=== PATIENT | male | born 1940 | race Caucasian/White ===

== ENCOUNTER 2019-06-25 07:06 | Outpatient (CLI) | payer MEDICARE, MEDICAID, SELFPAY ==
[2019-06-25 07:39] VITALS: BMI 31.8
--- NOTE | 2019-06-25 07:42 | ECG_ITS ---
NAME OF STUDY: LEXISCAN SESTAMIBI STRESS TEST INDICATION: Chest Pain, LEXISCAN STRESS TEST ORDERING PHYSICIAN: Nick CLINICAL INFORMATION: Chest pain INTERPRETATION: 1. The patient was brought to the laboratory where Lexiscan was infused over 20 seconds. The resting blood pressure was 128/84. Maximum blood pressure was 152/86. The resting heart rate was 81 beats per minute. The maximum heart rate is 108 beats per minute. 2. The baseline electrocardiogram reveals sinus rhythm with a right ventricular conduction delay and first-degree AV block, poor R wave progression 3. With Lexiscan infusion, there were no ST segment changes to suggest ischemia. 4. The patient experienced no symptoms or arrhythmias during the examination. CONCLUSION: 1. Unremarkable Lexiscan infusion. 2. Nuclear imaging to follow. Electronically Signed On 06-25-2019 16:24:38 TELETRAY OPERATOR by Chad Bañuelos M.D. [id number]
--- NOTE | 2019-06-25 07:43 | NMCV_ITS ---
Gurwinder Lanza Age: 79 Gender: M : 1940 Exam Date: 06/25/2019 08:06 Ordering Phys: Shemar Romero Technologist: MARY JANE Red Exam Location: [facility] Indications: Chest Pain STRESS TEST Please see separate stress test report in [facility] for full findings IMAGE PROTOCOL Rest/Stress 1 Lexiscan Day Radiopharmaceutical Dose (mCi) Administration Site Administered by Rest: Tc-99m 10.2 IV AMRY JANE Red Sestamibi Stress:Tc-99m 30.9 IV MARY JANE Red Sestamibi Rest: 25-Jun-2019 60 Discovery 630 Stress: 25-Jun-2019 60 Discovery 630 0.4mg Lexiscan. Images obtained in supine and prone position. SPECT RESULTS Technical Quality: Good Raw Data Analysis: Normal, Subdiaphragmatic activity Image Corrections: Attenuation correction applied to both rest and stress due to breathing Summed Stress Score: 0 Summed Rest Score: 0 Summed Difference Score: 0 PERFUSION FINDINGS SPECT images demonstrate homogeneous tracer distribution throughout the myocardium. FUNCTIONAL RESULTS (calculated via Gated SPECT) Stress Image LV EF (%): 71 Stress EDV (mL):82 TID: 1.14 Stress ESV (mL):24 FUNCTIONAL FINDINGS: The left ventricle is normal in size. Transient Ischemia Dilatation of 1.1. There is normal left ventricular systolic function. The left ventricular ejection fraction is normal with a value of 71%. There is normal left ventricular wall thickening. Normal end-diastolic and end-systolic volumes. IMPRESSIONS 1. Myocardial perfusion imaging is normal. 2. Overall left ventricular systolic function is normal without regional wall motion abnormalities. 3. The left ventricular ejection fraction is normal with a value of 71%. 4. This study suggests a low likelihood of angiographically significant coronary artery disease. Ghada Vazquez MD (Electronically Signed) Final Date: 26 June 2019 13:31 S
[2019-06-25] MEDS: regadenoson 0.4 Mg/5 ml Syringe IVP (08:58)
[2019-06-25] MEDS: aminophylline 25 mg/mL SDV 10 mL IVP (09:03)
[2019-06-25 09:08] VITALS: BP 142/85; PULSE 78
== END 2019-06-25 07:07 | disposition home or self-care (01) ==
PROVIDERS: Family Provider Family Medicine; PCP Family Medicine; Visit Provider Family Medicine
DX: R07.9 Chest pain, unspecified (principal); I25.118 Atherosclerotic heart disease of native coronary artery with other forms of angina pectoris; R06.09 Other forms of dyspnea
CPT/HCPCS: 78452; 93017; 96374; A9500; J0280; J2785

== ENCOUNTER → 2021-03-10 14:45 | Outpatient (BNVA) | payer MEDICARE, MEDICAID, SELFPAY | PROVIDERS: Family Provider Family Medicine; PCP Family Medicine; Visit Provider Internal Medicine Cardiovascular Disease | DX: R06.00 Dyspnea, unspecified (principal); R07.9 Chest pain, unspecified; I25.10 Atherosclerotic heart disease of native coronary artery without angina pectoris; I10 Essential (primary) hypertension; E78.5 Hyperlipidemia, unspecified; J44.9 Chronic obstructive pulmonary disease, unspecified | CPT/HCPCS: 80048; 83735; 83880 ==

== ENCOUNTER → 2022-02-21 10:43 | Outpatient (BNVA) | payer MEDICARE, MEDICAID, SELFPAY | PROVIDERS: Family Provider Family Medicine; PCP Family Medicine; Visit Provider Internal Medicine Cardiovascular Disease | DX: R06.00 Dyspnea, unspecified (principal); R07.9 Chest pain, unspecified; I25.10 Atherosclerotic heart disease of native coronary artery without angina pectoris; I10 Essential (primary) hypertension; E78.5 Hyperlipidemia, unspecified; J44.9 Chronic obstructive pulmonary disease, unspecified; Z87.891 Personal history of nicotine dependence | CPT/HCPCS: 99205; 99214 ==

== ENCOUNTER → 2022-02-28 09:18 | Outpatient (BNVA) | payer MEDICARE, MEDICAID, SELFPAY | PROVIDERS: Family Provider Family Medicine; PCP Family Medicine; Visit Provider Internal Medicine Hematology & Oncology | DX: I10 Essential (primary) hypertension (principal); I25.10 Atherosclerotic heart disease of native coronary artery without angina pectoris; R06.00 Dyspnea, unspecified; R07.9 Chest pain, unspecified | CPT/HCPCS: 80048; 85025; 85610 ==

== ENCOUNTER 2022-03-06 13:40 | Observation (INO) | payer MEDICARE, MEDICAID, SELFPAY ==
[2022-03-06] VITALS (43 sets, daily range): BP systolic 100–168; BP diastolic 57–137; PULSE 58–86; RESP 14–24; TEMP 36.8–37.1; O2SAT 73–98; BMI 32.3
--- NOTE | 2022-03-06 07:30 | XACV_ITS ---
Exam Room: [facility] Ht: 183 cm Wt: 108 kg BSA: 2.37 m2 Gender: Male : 1940 Any Known Allergies: Other Exam Priority: Routine Procedure(s): Procedure Description: Diagnostic procedure Procedure Description: PCI procedure Procedure Description: Left Heart Catheterization Procedure Description: Drug Eluting Coronary Stent Procedure Description: PTCA Procedure Description: Miscellaneous Procedure Description: ACT Procedure Description: Coronary Angiography Diagnostic Cath Status: Elective Diagnostic Findings * Coronary angiography shows right dominance. * Left Main has no disease. * Left Anterior Descending has proximal LAD stent. Mild 40% in stent restenosis. Mild segment of diagonal branch with 70% stenosis. * Mid Circumflex: obstructive hazy 95% stenosis, OREN: 3 flow. * Right Coronary Artery has minor luminal irregularities. PCI Status: Elective PCI Indication: Other Interventional Findings * Procedure detail: We engaged left main artery with XB 3.5 guide catheter. IV heparin was administered to maintain ACT above 250 S. 0.014 run-through guidewire was used to cross the mid left circumflex artery stenosis and was put in distal vessel. We predilated the stenosis with 2.5 x 12 mm noncompliant balloon. This was followed by placement of 3.0 x 15 mm resolute Ambreen drug-eluting stent. We postdilated the proximal part portion of the stent with 3.5 x 6 mm NC balloon. At this time final angiogram was performed that showed excellent stent expansion, no residual stenosis and OREN-3 flow. Patient left the Field Coordinator in a stable condition. * Mid Circumflex: 70% stenosis treated with a AB TREK 2.50X12 RX BALLOON, SHAHEEN R AMBREEN 3.0X15 SABINE, and MDT GUERO EUPHORA RX [id number] BALLOON. 0% residual stenosis, OREN: 3 flow. Conclusions 1. Mid Circumflex: obstructive hazy 95% stenosis. 2. Mild 40% in stent restenosis of proximal LAD stent. Mild segment of diagonal branch with 70% stenosis. 3. Case was discussed and images were reviewed with Dr. Ingram. Decision was made to proceed with medical management of diagonal lesion and PCI of mid circumflex lesion. 4. Successful revascularization of mid left circumflex artery stenosis with SABINE x1. 5. Mid Circumflex was treated with a Balloon, Drug Eluting Stent, and Balloon. Recommendations * Continue Plavix 75mg p.o. daily for at least one year. * Statin and aspirin 81mg. * Outpatient cardiology follow-up in 4 weeks. Interventional RX Recommendation: PCI w/o planned CABG Diagnostic RX Recommendation: PCI w/o planned CABG Anticoagulation: Heparin LV EDP: 18 mmHg Left Ventriculography Findings: * Left Ventriculogram not performed to minimize contrast use. Pressures Phase:Rest AO : 113 / 70 ( 90 ) @ 10:05:00 AM 121 / 71 ( 92 ) @ 10:18:00 AM 114 / 68 ( 89 ) @ 10:18:00 AM LV : 150 / -7 / 18 @ 10:18:00 AM 151 / -7 / 18 @ 10:18:00 AM Valves Phase:DefaultPhase AV : 9.0 @ 10:07:27 AM AV Mean Gradient: 14.0 @ 10:07:27 AM Clinical Evaluation EBL: 5mL-10mL Procedural Details Procedure Consent Obtained. Admit Source: Out Patient. Pre-Procedure Time Out. Identified patient by full name and date of as verbalized by the patient/guarantor. Does the consent match the physician's order: Yes. Accurate & Complete Informed Consent: Yes. Inpatient/Outpatient History & Physical on Chart: Yes. If H&P is completed, is and addenduem needed: No; If yes, is the addendum complete: N/A. Visualize and Verify Site with Patient/Guarantor: N/A. Relevant Radiology Images available: N/A. The risks, benefits, and alternatives of sedation and/or procedure were discussed by physician. The patient agrees to continue. Procedure started. [facility] Clinical Fraility Score: 3: Managing Well. Field Coordinator Indications: Worsening Angina. Chest Pain Symptom Assessment: Typical Angina Symptoms. Correct patient, site and procedure confirmed by cath team. Current diagnosis: Chest Pain, Shortness of breath. PERRLA. Strong, equal hand head of visual merchandising bilaterally. Lungs clear x 5 lobes. IV Site on Arrival: 20 gauge in the right anticubital. IV Fluids: 0.9% NaCl at KVO. 0 mL infused prior to solar lab technician. Pre Procedural Pulses: bilateral radial was 3+. Pre Procedural Pulses: bilateral posterior tibial was 2+. Pre Procedural Pulses: bilateral dorsalis pedis was 2+. Oxygen started at 2liters/min via nasal canula. right radial was prepped with chloroprep then draped in the usual sterile fashion. right groin was prepped with chloroprep then draped in the usual sterile fashion. Physician notified. Baseline sample Acquired. HR: 75 BPM. Physician arrived. Physician scrubbed in. Immediate Pre-Procedure Time Out. Correct Patient: Yes; Correct Procedure: Yes; Correct Site: Yes; Correct Patient Position: Yes; Correct Supplies: Yes; Dried Flammable Prep: Yes; Blood Products Available: No;. Lidocaine 1% infiltrated to the right radial. Arterial access obtained. A 5 kittitian TIG catheter in over wire. Catheter removed over the exchange wire. A 5 kittitian JL4 catheter in over wire. Multiple views taken of left coronary artery. Catheter removed over the exchange wire. A 5 kittitian JR4 catheter in over wire. EDP Sample taken: LV 150/-8,18; HR: 76 BPM; SpO2: 93%. Pullback taken: LV 151/-8,18; AO 121/71(92); Mean: 14mmHg, Peak to Peak: 9mmHg, SEP: 9sec/min; HR: 95 BPM; SpO2: 93%. Catheter redirected to the RCA. Catheter removed over the exchange wire. A 5 kittitian 3DRC catheter in over wire. Multiple views taken of right coronary artery. Catheter and wire out. Side port of sheath attached to Normal Saline flush at KVO to maintain patency. Dr. Ingram arrived to review of cine films. Dr. Ingram scrubbed in to perform intervention. 6 kittitian XB 3.5 guide catheter was inserted over the wire. Runthrough guidewire was advanced through the guide catheter to lesion in the mid Circ. Guidewire advanced across lesion. Balloon inserted to lesion in the mid Circ. Inflation number: 1 The AB TREK 2.50X12 RX BALLOON was reinflated across the Mid CX, to 12 [place] for 0:21 seconds. Balloon out. Stent inserted to lesion in the mid Circ. Inflation Number : 2 A SHAHEEN Rao AMBREEN 3.0X15 SABINE -Lot Number#[id number] was prepped and advanced across the Mid CX. The stent was deployed at 12 [place] for 0:21 seconds. EXP 12-22-2023. Stent balloon out over wire. Balloon inserted to lesion in the mid Circ. Inflation number : 3 A MDHarris JACK EUPHORA RX [id number] BALLOON was prepped and advanced across the Mid CX , then inflated to 12 [place]IGH for 0:21 seconds. Balloon out. Angiography performed, checking results. Wire out. Angiography performed, checking results. ACT drawn. Results 259 seconds. Therapeutic limits - pre-heparin administration 90-150 seconds and monitoring heparin during a vascular procedure >250 seconds. Guide catheter and wire out. A TR Band was successful obtaining hemostatsis at the Right Radial artery insertion site. Post Procedure: Pulses reassessed and unchanged. PERRLA. Strong, equal hand head of visual merchandising bilaterally. Medication's Wasted: Nitro = 49.55 mg. Medication's Wasted: Heparin = 3000 unit. Total IV fluids: 96 mL. Post-op diagnosis: Severe mid circumflex stenosis, status post PCI with one stent. Complications: None. Estimated blood loss: 5mL-10mL. Responsiveness - Normal response to verbal stimuli; alert and oriented, PERRLA. Airway - Unaffected, no intervention required; spontaneous ventilation. Circulation: W/N/L, pulses unchanged. Nausea/Vomiting: N/A. Procedure completed. Patient transferred by wheelchair to 1st floor. Vital chart was stopped. Access Site Site: Right Radial artery Sheath Size: 6 Fr Hemostasis Method: TR Band Hemostasis Success: Successful Procedure Medications Start: 8:48 AM Stop: 8:48 AM Medication: Versed Amount: 1 mg Route: I.V. Start: 8:48 AM Stop: 8:48 AM Medication: Fentanyl Amount: 50 mcg Route: I.V. Start: 9:00 AM Stop: 9:00 AM Medication: Nitrogylcerin Amount: 50 mcg Route: S.Q. Start: 9:01 AM Stop: 9:01 AM Medication: Nitrogylcerin Amount: 200 mcg Route: I.A. Start: 9:11 AM Stop: 9:11 AM Medication: Heparin Amount: 5000 units Route: I.V. Start: 9:13 AM Stop: 9:13 AM Medication: Versed Amount: 1 mg Route: I.V. Start: 9:33 AM Stop: 9:33 AM Medication: Fentanyl Amount: 25 mcg Route: I.V. Start: 9:38 AM Stop: 9:38 AM Medication: Heparin Amount: 5000 units Route: I.V. Start: 9:38 AM Stop: 9:38 AM Medication: Versed Amount: 1 mg Route: I.V. Start: 9:52 AM Stop: 9:52 AM Medication: Heparin Amount: 2000 units Route: I.V. Start: 9:57 AM Stop: 9:57 AM Medication: Versed Amount: 1 mg Route: I.V. Start: 9:57 AM Stop: 9:57 AM Medication: Nitrogylcerin Amount: 200 mcg Route: I.A. Start: 9:57 AM Stop: 9:57 AM Medication: Fentanyl Amount: 25 mcg Route: I.V. Start: 10:02 AM Stop: 10:02 AM Medication: Heparin Amount: 1000 units Route: I.V. Start: 10:04 AM Stop: 10:04 AM Medication: Plavix Amount: 600 mg Route: P.O. I, the attending physician, have reviewed and verified all procedure medications. Yes, all medications given per verbal order History/Risk Factors Hypertension: Yes Dyslipidemia: Yes Peripheral Arterial Disease (PAD): No Myocardial Infarction (AK): No Obesity: No Renal Disease: No Tobacco Use: Former Prior Interventions PCI: Yes CABG: No Valve Surgery: No Report Signatures Interventional Workflow Finalized by Steve Ingram MD on 03/12/2022 12:13 AM Diagnostic Workflow Finalized by Ghada Vazquez MD on 03/09/2022 01:03 PM
[2022-03-06] MEDS: diphenhydrAMINE 50 mg Capsule PO (07:40)
--- NOTE | 2022-03-06 08:41 | W.PM.OPSUD ---
Surgery/Procedure H&P Update DATE OF PROCEDURE: March 06, 2022 DATE H&P PERFORMED: 02/21/22 H&P UPDATE INFORMATION: I have reviewed H&P completed within last 30 days, I have examined patient prior to procedure and No changes to prior documentation PREOP DIAGNOSIS: Exertional chest tightness and SOB PRIMARY INDICATION FOR PROCEDURE: Exertional chest tightness and SOB inspite of normal stress test PLANNED PROCEDURE: Operation Date: 03/06/22 08:30 Proposed Procedures p [facility] w/wo 07996,R07.9 R06.00,I25.10(Left) - Ghada Vazquez MD PATIENT REASSESSED PRIOR TO SEDATION, WITH NO CHANGE NOTED: Yes PHYSICAL EXAM: alert, oriented x 3, clear to auscultation bilaterally and regular rate & rhythm AIRWAY EVAL/ANESTHESIA PLAN: normal airway, ASA III, Monitored Anesthesia, Local Anesthesia, Risks, benefits & alternatives of sedation and/or procedure discussed and Patient agrees to continue as planned
[2022-03-06] MEDS: sodium chloride 0.9% 1,000 ML 100 ML IV (10:56)
--- NOTE | 2022-03-06 11:05 | PC.NURSE ---
Patient arrived on the floor via wheelchair at 1030 am with right radial TR band. Puncture site is clean and no hematoma present. Skin around band is warm and dry. Patient instructed not to put any weight on right wrist. Patient verbalized understanding.
[2022-03-06] MEDS: TRAMadol 50 mg Tablet PO (14:00)
--- NOTE | 2022-03-06 16:19 | PC.NURSE ---
tr band slowly deflated and finally removed at 1610.site dressed with 2x2 gauze and secured with biocclusive drsg.right hand remains warm to touch and with brisk capillary refill.no hematoma noted.palpable radial pulse noted.pt instructed in activity restrictions s/p tr band removal...and instructed to notify staff for any bleeding,bruising ,pain,or for any concerns at all.pt verb understanding of instructions.
--- NOTE | 2022-03-06 17:06 | PC.NURSE ---
transferred to [id number] via wheel chair at this time
[2022-03-06] MEDS: amlodipine 10 mg Tablet PO (20:56)
[2022-03-07] VITALS: BP 125/60; PULSE 65; RESP 18; TEMP 36.6; O2SAT 96
[2022-03-07] MEDS: acetaminophen 325 mg Tablet 650 MG PO ×2 (01:52→07:53)
[2022-03-07] MEDS: temazepam 15 mg Capsule PO (01:58)
[2022-03-07 03:40] LABS: Blood Urea Nitrogen 14 mg/dL (8-23); Calcium 8.8 mg/dL (8.5-10.5); Carbon Dioxide 26 mmol/L (22-29); Chloride 105 mmol/L (98-107); Chol HDL Ratio 2.98 mg/dL (1.0-5.00); Cholesterol 125 mg/dL (0-200); Glucose 110 mg/dL (65-115); HDL Cholesterol 42 mg/dL (60-100); LDL Cholesterol Calculated 57 mg/dL (50-129); LDL HDL Ratio 1.36 RATIO (0.00-3.22); Magnesium 2.2 mg/dL (1.7-2.3); NT Pro B Type Natriuretic Pept 59 pg/mL (0-450); Osmolality Calculated 289 mOsm/kg (285-295); Sodium 139 mmol/L (136-145); Triglycerides 130 mg/dL (0-150)
[2022-03-07 04:00] VITALS: BP 125/60; PULSE 72; RESP 20; TEMP 36.3; O2SAT 94
[2022-03-07] MEDS: TRAMadol 50 mg Tablet PO (05:38)
[2022-03-07 05:57] VITALS: PULSE 73
[2022-03-07 07:33] VITALS: BP 127/89; PULSE 83; RESP 18; TEMP 36.7; O2SAT 93
[2022-03-07] MEDS: doxazosin 4 mg Tablet PO (08:15)
[2022-03-07] MEDS: clopidogrel 75 mg Tablet PO (08:16)
[2022-03-07] MEDS: aspirin 81 mg EC Tablet PO (08:16)
[2022-03-07] MEDS: latanoprost 0.005% Op Soln 2.5 mL Btl 1 DROP OPHTHALMIC (08:17)
--- NOTE | 2022-03-07 10:23 | PM.DCS ---
Discharge Providers Date of Admission: 03/06/22 13:40 Date of Discharge: March 07, 2022 Attending Provider at Admission: Ghada Vazquez MD Attending Provider at Discharge: Ghada Vazquez MD Primary Care Provider: Shemar Romero Reason for Visit Reason for Visit: R07.9 Brief History: Exertional chest pain and SOB Hospital Course Hospital Course 81 yo man with PMHx of HTN, HLD, CAD s/p LAD stent in 2005, former smoker and COPD. He complains of chest tightness, with SOB and dizziness on and off mostly at rest. These episodes happen with physical stress, anxiety. EKG (02/08/21): sinus rhythm, normal axis and non specific ST depression. He did not tolerate imdur due to headache. He lost his 2 brothers recently and has been under significant stress.? He continues to have exertional chest tightness and SOB. Intermittent leg swelling. His SOB is getting worse lately. He underwent LHC and underwent SABINE placement to severe mid LCx lesion and medical treatment of diagonal branch was opted for. He did well post procedure and was discharged home on stable condition. Physical Exam Const: COMMON NORMALS: no acute distress, patient oriented x3 and alert GENERAL APPEARANCE: cooperative, comfortable, well kempt and well hydrated HENMT: COMMON NORMALS: hearing grossly normal bilaterally, external ears normal and moist oral mucous membranes FACE & SINUS: normal facial exam EXTERNAL EAR: Yes external ears normal Eye: COMMON NORMALS: EOMs intact bilaterally and no scleral icterus GENERAL EYE: appearance normal, both eyes and all related structures ALIGNMENT: Yes alignment normal Neck/C-Spine: COMMON NORMALS: no lymphadenopathy, supple and no JVD GENERAL: Yes normal visual inspection CAROTIDS: Yes normal carotid upstroke Lymph: LYMPHATIC: no lymphadenopathy noted Chest: COMMONS NORMALS: normal inspection of the chest and normal palpation of entire chest wall CHEST: Yes Symmetrical chest wall rise and No tenderness Resp: COMMON NORMALS: clear to auscultation bilaterally AUSCULTATION: clear to auscultation bilaterally, no crackles, no rales, no rhonchi and no wheezes Cardio: COMMON NORMALS: no JVD, regular rate, regular rhythm, S1 normal heart sound present, S2 normal heart sound present and Peripheral pulses 2+ throughout PALPATION: normal PMI RATE: regular rate RHYTHM: regular rhythm HEART SOUNDS: S1 normal heart sound present, S2 normal heart sound present and no murmurs BRUITS: no carotid bruits PERIPHERAL PULSES: Peripheral pulses 2+ throughout, radial pulses present, posterior tibial pulses present and dorsalis pedis present GI: COMMON NORMALS: Soft to palpation AUSCULTATION: Yes normoactive bowel sounds PALPATION: Yes Soft to palpation, No Tenderness to palpation present (GI), No Guarding due to palpation present (GI) and No Rigid due to palpation Extremity: GENERAL: No clubbing, No cyanosis, No edema, No pallor and Yes other findings (right wrist 2+ radial, no hematoma) Neuro: COMMON NORMALS: patient oriented x3, CN's II-XII intact bilaterally and no focal motor deficits SENSORIUM/ORIENTATION: Yes alert Psych: COMMON NORMALS: Normal thought process present and speech normal APPEARANCE: Yes well kempt SPEECH: Yes normal speech MOOD & AFFECT: Yes euthymic mood THOUGHT PROCESS: Normal thought process present THOUGHT CONTENT: Yes Normal thought content present Discharge Data Studies Completed and Pending Pending at discharge Category Date Time Status GRINDER SET UP OPERATOR CENTERLESS request for service Routine Exams 03/06/22 07:30 Taken Liver Panel Routine Lab 03/07/22 02:44 Received Laboratory Results Sodium 139 mmol/L (136-145) 03/07/22 02:44 Potassium 4.0 mmol/L (3.5-5.1) 03/07/22 02:44 Chloride 105 mmol/L (98-107) 03/07/22 02:44 Carbon Dioxide 26 mmol/L (22-29) 03/07/22 02:44 Anion Gap 12.0 (5-19) 03/07/22 02:44 BUN 14 mg/dL (8-23) 03/07/22 02:44 Creatinine 0.7 mg/dL (0.7-1.2) 03/07/22 02:44 GFR Calculation Not Reportable 03/07/22 02:44 Glucose 110 mg/dL (65-115) 03/07/22 02:44 Calculated Osmolality 289 mOsm/kg (285-295) 03/07/22 02:44 Calcium 8.8 mg/dL (8.5-10.5) 03/07/22 02:44 Magnesium 2.2 mg/dL (1.7-2.3) 03/07/22 02:44 NT-Pro-B Natriuret Pep 59 pg/mL (0-450) 03/07/22 02:44 Triglycerides 130 mg/dL (0-150) 03/07/22 02:44 Cholesterol 125 mg/dL (0-200) 03/07/22 02:44 LDL Cholesterol, Calc 57 mg/dL (50-129) 03/07/22 02:44 HDL Cholesterol 42 mg/dL (60-100) L 03/07/22 02:44 LDL/HDL Ratio 1.36 RATIO (0.00-3.22) 03/07/22 02:44 Cholesterol/HDL Ratio 2.98 mg/dL (1.0-5.00) 03/07/22 02:44 Vitals Last Vital Signs Temp 98.1 F 03/07/22 07:33 Pulse 83 03/07/22 07:33 Resp 18 03/07/22 07:33 BP 127/89 03/07/22 07:33 Pulse Ox 93 03/07/22 07:33 O2 Del Method 03/07/22 07:33 Discharge Plan Discharge Patient Disposition: Home Condition: Stable Prescriptions: New clopidogrel 75 mg Tablet 75 mg PO DAILY Qty: 30 3RF aspirin 81 mg Tablet,Delayed Release (Dr/Ec) 81 mg PO DAILY Qty: 30 3RF nitroglycerin 0.4 mg Tablet, Sublingual 0.4 mg sublingual Q5M PRN (Reason: Chest Pain) Qty: 30 3RF Continued naproxen sodium [Aleve] 220 mg capsule 220 mg PO BID PRN (Reason: pain) doxazosin 4 mg tablet 4 mg PO DAILY latanoprost 0.005 % drops 1 drp ophthalmic (eye) DAILY lovastatin 20 mg tablet 40 mg PO DAILY tramadol 50 mg tablet 50 mg PO Q8H PRN (Reason: Pain) PreserVision AREDS [id number] capsule 1 cap PO BID amlodipine 10 mg tablet 10 mg PO DAILY omeprazole magnesium [Prilosec OTC] 20 mg tablet,delayed release (DR/EC) 20 mg PO DAILY PRN (Reason: Acid Reflux) furosemide 20 mg tablet 20 mg PO BID Discontinued aspirin 325 mg tablet,delayed release (DR/EC) 325 mg PO DAILY Discharge Orders: Discharge Order (Routine); Ordered 03/07/22 Ordered By: Ghada Vazquez Referrals: Baylee Asencio FNP [Nurse Practitioner] - 03/14/22 1:45 pm Discharge Diet: Cardiac Discharge Activity: Limit activity as instructed Activity Restrictions/Additional Instructions: Do not lift anything more than 5 lbs for 1 week. Keep the site dry and clean Take medications as prescribed and follow up as scheduled. Discharge Attestations Time Spent in Discharge Care*: less than 30 min Quality Metrics Clinical Quality Measures [ No reported AMI, CVA or VTE this stay] Coding Level of Care Code Acute Chg FW DC note
--- NOTE | 2022-03-07 10:47 | PC.NURSE ---
meds to bed called [facility] pharmacy.
[2022-03-07 10:57] LABS: Alanine Aminotransferase 15 U/L (0-41); Albumin Level 3.8 g/dL (3.5-5.2); Alkaline Phosphatase 65 U/L (40-130); Aspartate Amino Transferase 13 U/L (0-40); Globulin 2.6 g/dL (1.3-4.6); Total Bilirubin 0.5 mg/dL (0.15-1.2); Total Protein 6.4 g/dL (6.6-8.7)
[2022-03-07 11:02] VITALS: BP 108/79; PULSE 86; RESP 18; TEMP 36.5; O2SAT 92
[2022-03-07 11:10] VITALS: BP 141/92; PULSE 86; RESP 17; TEMP 36.6; O2SAT 95
--- NOTE | 2022-03-07 12:16 | PC.NURSE ---
Discharge Note Patient discharged to home via private vehicle accompanied by son. Discharge instructions reviewed with patient and/or guest service representative. Mobile pharmacy medications and/or prescriptions provided. Belongings/home medications returned. post angiogram home care instructions discussed to pt. pt verbalizes understanding.
== END 2022-03-07 12:14 | disposition home or self-care (01) ==
LOC: MEDSURG 03-07 02:45 → CSU 03-07 02:45
PROVIDERS: Internal Medicine; Admitting Provider Internal Medicine Cardiovascular Disease; PCP Family Medicine; Visit Provider Internal Medicine Cardiovascular Disease
DX: R07.9 Chest pain, unspecified (principal); R06.00 Dyspnea, unspecified; I25.10 Atherosclerotic heart disease of native coronary artery without angina pectoris; E78.5 Hyperlipidemia, unspecified; I10 Essential (primary) hypertension; Z95.5 Presence of coronary angioplasty implant and graft; Z87.891 Personal history of nicotine dependence
CPT/HCPCS: 36415; 80048; 80061; 80076; 83735; 83880; 85347; 93458; 96360; 99152; 99153; C1725; C1769; C1874; C1887; C1894; C9600; G0378; J1644; J2250; J3010; J3490; J7030; Q0163; Q9967

== ENCOUNTER → 2022-03-14 13:38 | Outpatient (BNVA) | payer MEDICARE, MEDICAID, SELFPAY | PROVIDERS: PCP Family Medicine; Visit Provider Nurse Practitioner Family | DX: I25.10 Atherosclerotic heart disease of native coronary artery without angina pectoris (principal); I10 Essential (primary) hypertension; Z95.5 Presence of coronary angioplasty implant and graft; Z87.891 Personal history of nicotine dependence | CPT/HCPCS: 36415; 80048; 99213; 99214 ==

== ENCOUNTER → 2022-07-21 10:14 | Outpatient (BNVA) | payer MEDICARE, MEDICAID, SELFPAY | PROVIDERS: PCP Family Medicine; Visit Provider Internal Medicine Cardiovascular Disease | DX: I25.10 Atherosclerotic heart disease of native coronary artery without angina pectoris (principal); I10 Essential (primary) hypertension; R07.9 Chest pain, unspecified; E78.5 Hyperlipidemia, unspecified; J44.9 Chronic obstructive pulmonary disease, unspecified; Z87.891 Personal history of nicotine dependence | CPT/HCPCS: 99213 ==

== ENCOUNTER 2023-05-02 11:55 | Outpatient (CLI) | payer MEDICARE, MEDICAID, SELFPAY ==
--- NOTE | 2023-05-02 12:02 | USCV_ITS ---
Gurwinder Lanza Age: 82 Gender: M : 1940 Exam Date: 05/02/2023 12:15 Ordering Phys: Shemar Romero XX Technologist: LAMAR Exam Location[place] [facility] [place] Indication: AORTIC STENOSIS BP: 125 / 67 HR: 66 Rhythm: Sinus Technical Quality: Adequate MEASUREMENTS (Male / Female) Normal Values 2D ECHO LVOT Diameter 2.0 cm LV Ejection Fraction MOD 2C 59.7 % LV Ejection Fraction 2C AL 58.1 % LA Diameter 3.9 cm LA Width 4.1 cm LA Height 5.8 cm RA Width 4.0 cm RA Height 5.1 cm Aorta at Sinotubular Diameter 2.2 cm IVC Diameter 1.9 cm M-MODE Aortic Annulus Diameter 3.2 cm LA Ao Ratio MM 1.1 MV E Point Septal Separation 0.4 cm DOPPLER AV Peak Velocity 308.3 cm/s LVOT Peak Velocity 134.0 cm/s AV Area Cont Eq vti 1.4 cm squared AV Area Cont Eq pk 1.4 cm squared MV Peak Velocity 119.0 cm/s MV Area PHT 3.0 cm squared Mitral E to A Ratio 0.9 MV E' Velocity 46.5 cm/s Mitral E to MV E' Ratio 8.9 Mitral E to LV E' Lateral Ratio 9.2 Mitral E to LV E' Septal Ratio 8.7 TR Peak Velocity 188.1 cm/s TR Peak Gradient 14.2 mmHg TR Mean Velocity 145.4 cm/s TR Mean Gradient 9.5 mmHg TR Velocity Time Integral 44.2 cm TV Peak E Velocity 53.0 cm/s Right Atrial Pressure 3.0 mmHg Pulmonary Artery Systolic Pressu 17.2 mmHg PV Peak Velocity 111.0 cm/s RV Acceleration Time 0.1 s RV Ejection Time 0.3 s RV AcT/ET 0.5 FINDINGS Left Ventricle Normal left ventricular size, systolic function and wall thickness, with no regional wall motion abnormalities. Left ventricular ejection fraction is estimated at 60 %. Right Ventricle Normal right ventricular size and systolic function. Right Atrium Normal right atrial size. Left Atrium Mildly increased left atrial size. Mitral Valve Mildly thickened mitral valve. Trace mitral valve regurgitation. Aortic Valve Thickened and sclerotic aortic valve. Mild aortic stenosis, with aortic valve. Peak gradient 38 mmHg and mean gradient of 20 mmHg. Estimated aortic valve area 1.5 cm squared. Trace aortic regurgitation. Tricuspid Valve Structurally normal tricuspid valve. Trace tricuspid valve regurgitation. Pulmonic Valve Structurally normal pulmonic valve. Trace pulmonary valve regurgitation. Pericardium No pericardial effusion. Aorta Normal size aortic root and proximal ascending aorta. IVC Normal IVC dimension with >50% respiratory change of the inferior vena cava. CONCLUSIONS 1. Normal left ventricular function, estimated LVEF 60% normal. 2. Thickened sclerotic aortic valve with parameters of mild aortic stenosis. 3. no other significant valvular abnormality noted. 4. Normal right heart and pulmonary pressures. Ashia Fink MD (Electronically Signed) Final Date: 02 May 2023 15:40 S
== END 2023-05-02 11:56 | disposition home or self-care (01) ==
LOC: RAD 11:57
PROVIDERS: PCP Family Medicine; Visit Provider Family Medicine
DX: I35.0 Nonrheumatic aortic (valve) stenosis (principal)
CPT/HCPCS: 93306